=== PATIENT | female | born 1985 | race Two or more races ===

== ENCOUNTER 2017-04-21 08:19 | Emergency (ER) | END 2017-04-21 09:04 | disposition home or self-care (01) ==

== ENCOUNTER 2017-05-06 08:19 | Emergency (ER) | END 2017-05-06 10:13 | disposition home or self-care (01) ==

== ENCOUNTER 2018-02-09 18:23 | Emergency (ER) | END 2018-02-09 21:50 | disposition home or self-care (01) ==